=== PATIENT | female | born 1960 | race Caucasian/White ===

== ENCOUNTER 2016-07-18 11:49 | Emergency (ER) | payer MEDICAID ==
[2016-07-18 13:02] LABS: APPEARANCE HAZY (CLEAR); BILIRUBIN NEGATIVE (NEGATIVE); COLOR YELLOW (YELLOW); GLUCOSE NEGATIVE (NEGATIVE); KETONE NEGATIVE (NEGATIVE); LEUKOCYTE ESTERASE NEGATIVE (NEGATIVE); NITRITE NEGATIVE (NEGATIVE); PROTEIN NEGATIVE (NEGATIVE); SPECIFIC GRAVITY 1.015 (1.005-1.020); UROBILINOGEN NORMAL (NORMAL)
[2016-07-18 13:03] LABS: BACTERIA MODERATE /hpf (NONE SEEN); RED CELLS - URINE 0-5 /hpf (0-5); WHITE CELLS - URINE 0-5 /hpf (0-5)
== END 2016-07-18 15:00 | disposition home or self-care (01) ==
LOC: D.ER 11:49
PROVIDERS: Emergency Medicine
DX: N39.0 Urinary tract infection, site not specified (principal); F32.9 Major depressive disorder, single episode, unspecified; F17.200 Nicotine dependence, unspecified, uncomplicated

== ENCOUNTER 2016-12-23 11:34 | Emergency (ER) | payer MEDICAID | END 2016-12-23 12:59 | disposition home or self-care (01) | LOC: D.ER 11:34 | DX: S61.213A Laceration without foreign body of left middle finger without damage to nail, initial encounter (principal); W26.9XXA Contact with unspecified sharp object(s), initial encounter; Y93.89 Activity, other specified; Y92.029 Unspecified place in mobile home as the place of occurrence of the external cause; F17.200 Nicotine dependence, unspecified, uncomplicated ==

== ENCOUNTER → 2018-03-28 07:51 | Outpatient (CLI) | payer MEDICAID | END | disposition home or self-care (01) | LOC: D.RT 07:51 | DX: J45.20 Mild intermittent asthma, uncomplicated (principal) ==

== ENCOUNTER → 2018-04-04 16:57 | Outpatient (CLI) | payer MEDICAID | END | disposition home or self-care (01) | LOC: D.MAMMO 11:15 | DX: Z12.31 Encounter for screening mammogram for malignant neoplasm of breast (principal) ==

== ENCOUNTER 2018-10-04 09:30 | Emergency (ER) | payer MEDICAID ==
[~2018-10-04] VITALS: Ht 165.1 cm; Wt 63.5 kg
[2018-10-04 09:48] VITALS: Ht 165.1 cm; Wt 63.5 kg
[2018-10-04 10:51] LABS: BASOPHILS 0.3 % (0-2); EOSINOPHILS 1.6 % (0-7); HEMOGLOBIN 14.7 g/dL (12-16); IMMATURE GRANULOCYTES 0.1 % (0-5); MCH 30.1 pg (26.0-34.0); MCV 86.1 fL (80.0-100.0); MEAN PLATELET VOLUME 10.6 fL (7.4-10.4); MONOCYTES 6.3 % (2-11); NEUTROPHILS 72.7 % (40-80); PLATELET COUNT 234 10x3/uL (130-400); RBC 4.88 10x6/uL (4.00-5.40); RDW 13.5 % (11.5-14.5); WBC 10.4 10x3/uL (4.8-10.8)
[2018-10-04 11:05] LABS: ANION GAP 14.1 mmol/L (8-16); BILIRUBIN - TOTAL 0.68 mg/dL (0.2-1.3); CALCIUM 9.1 mg/dL (8.5-10.1); CARBON DIOXIDE 27.7 mmol/L (21.0-32.0); CREATININE - SERUM 0.9 mg/dL (0.6-1.3); POTASSIUM - SERUM 3.8 mmol/L (3.5-5.1); PROTEIN - SERUM 7.9 g/dL (6.4-8.2)
[2018-10-04] MEDS ORDERED: ORAL ANALGESIC9 GM TOPICAL (12:11)
[2018-10-04] MEDS ORDERED: CYCLOBENZAPRINE10 MG PO (12:11)
[2018-10-04] MEDS ORDERED: ACETAMINOPHEN500 M1 PO (12:11)
[2018-10-04] MEDS ORDERED: IBUPROFEN800 MG PO (12:11)
[2018-10-04] MEDS ORDERED: CLEOCIN HCL300 MG PO (12:11)
[2018-10-04 12:35] VITALS: BP 111/66
== END 2018-10-04 12:35 | disposition home or self-care (01) ==
LOC: D.ER 09:30
PROVIDERS: Family Medicine
DX: S02.5XXA Fracture of tooth (traumatic), initial encounter for closed fracture (principal); X58.XXXA Exposure to other specified factors, initial encounter; Y93.89 Activity, other specified; K02.9 Dental caries, unspecified; K05.10 Chronic gingivitis, plaque induced

== ENCOUNTER → 2019-08-09 13:32 | Outpatient (CLI) | payer OTHER ==
[~2019-08-09 13:32] MED LIST: ACETAMINOPHEN500 M1 PO; CLEOCIN HCL300 MG PO; CYCLOBENZAPRINE10 MG PO; IBUPROFEN800 MG PO; ORAL ANALGESIC9 GM TOPICAL
== END | disposition home or self-care (01) ==
LOC: D.US 13:32
PROVIDERS: ATTEND Nurse Practitioner
DX: R22.1 Localized swelling, mass and lump, neck (principal)